=== PATIENT | male | born 1940 | race Caucasian/White ===

== ENCOUNTER 2016-08-12 11:45 | Day surgery (SDC) | payer MEDICARE ==
--- NOTE | 2016-08-08 14:19 | HP ---
Chief Complaint - Chief Complaint Date of Service: 08/08/16 Chief Complaint: need my colonoscopy History of Present Illness: 76 year old male who has had previous colonoscopy and polypectomy and his doctor told him to repeat in 5 years. No blood in stools, no abdominal pain or complaints. No weight loss. No family history of colon cancer. Hx of GERD and on meds but asymptomatic. - Patient's Past Medical History Patient History - Medical: Anxiety, Diabetes Type 2, GERD Patient History - Cardiac/Respiratory: Hypertension Patient History - Cancer: No Hx of Cancer Patient History - Surgical Procedures: Colonoscopy, EGD, ENT, Orthopedic - fractured leg----blood clot afterwards - Family History Family History:: no untoward family reactions to anesthesia, no familial bleeding tendencies, no family history of clotting disorders - Family History Mother Family History - Medical: - stroke age 73 Father Family History - Medical: - brain tumor - Social History Living Situations: spouse Abuse History: No History of abuse Psych History: No pertinent hx Does anyone smoke in the home?: No Smoking Status: Former smoker - 17 years ago Alcohol Use: none Drug Use: none - Immunizations Immunizations Up to Date: Yes Hx Pneumococcal Vaccination: More Information Required to Determine History of Influenza Vaccine: Yes Review Of Systems (GEN) - Review of Systems Generalized/Overall Review: Absent: Weakness, Chills, Fever, Fatigue, Weight loss, Weight gain Respiratory: Absent: Cough, Shortness of Breath, Wheezing Cardiac: Absent: Chest Pain, Edema, Palpitations Abdominal: Absent: Nausea, Vomiting, Abdominal Pain, Constipation, Diarrhea, Bright blood from rectum Genitourinary: Absent: Burning, Itching, Nocturia Musculoskeletal: Present: Back Pain. Absent: Joint Pain, Muscle Pain Neurological: Present: Anxiety. Absent: Headache, Depressed Skin: Absent: Dryness Allergies/Adverse Reactions: Allergies Allergy/AdvReac Type Severity Reaction Status Date / Time No Known Allergies Allergy Verified 08/08/16 14:19 Home Medications: HOME MEDICATIONS Aspirin [Aspir-Low] 81 mg PO DAILY 08/08/16 [Last Taken Unknown] Citalopram Hydrobromide [Celexa] 20 mg PO DAILY 08/08/16 [Last Taken Unknown] Cyclobenzaprine HCl [Flexeril] 10 mg PO TID PRN 08/08/16 [Last Taken Unknown] Famotidine [Pepcid AC] 20 mg PO DAILY 08/08/16 [Last Taken Unknown] Fenofibrate [Lofibra] 160 mg PO DAILY 08/08/16 [Last Taken Unknown] Glimepiride [Amaryl] 1 mg PO DAILY 08/08/16 [Last Taken Unknown] Lisinopril [Zestril] 40 mg PO DAILY 08/08/16 [Last Taken Unknown] Metaxalone [Skelaxin] 800 mg PO TID PRN 08/08/16 [Last Taken Unknown] Sucralfate [Carafate] 1 gm PO BID 08/08/16 [Last Taken Unknown] clonazePAM [Klonopin] 0.5 mg PO BID 08/08/16 [Last Taken Unknown] Exam - Exam Vital Signs: P 70 BP 130/75 RR 15 Ht 180cm Wt 116 kg T 36.8 Constitutional: Present: Alert, Oriented x3, Cooperative, Well nourished, No distress, Obese ENT Exam: Present: normal ENT inspection Eye Exam: bilateral eye: normal inspection Neck: Present: non-tender, full range of motion Respiratory: Present: lungs clear, normal breath sounds, no respiratory distress Cardiovascular/Chest: Present: normal peripheral pulses, regular rate, rhythm, no edema, no gallop, no JVD, no murmur Abdomen: Present: Normal bowel sounds, soft, nontender, no hepatospenomegaly, obese /Rectal: Present: Exam deferred Extremity: Present: normal range of motion, non-tender, normal inspection, no pedal edema Skin Exam: Present: normal color, warm/dry, no cyanosis Neurologic: Present: no motor/sensory deficits, alert, normal mood/affect Appearance: Present: appropriate appearance, appropriate insight, neat, no memory impairment Eye contact: Present: cooperative, good eye contact, normal speech Thoughts: Present: normal thought pattern, no apparent hallucination Assessment/Plan - Narrative Narrative: Discussed the [facility] for a colonoscopy with possible biopsy or polypectomy. MAKI discussed and he will do his split prep on the day of colonoscopy because we cannot schedule until afternoon with the current OR schedule at [facility]. Discussed his anxiety and his hypoglycemic symptoms. He understands and agrees. - Assessment/Plan (1) Diabetes Problem: Chronic Qualifiers: Diabetes mellitus type: type 2 (2) Hypertension Problem: Chronic (3) Screening for colon cancer Problem: Acute (4) Colon polyps Problem: Suspected Qualifiers: Colon polyp type: unspecified Colon location: unspecified part of colon Qualified Code(s): K63.5 - Polyp of colon (5) Anxiety Problem: Chronic (6) GERD (gastroesophageal reflux disease) Problem: Chronic Qualifiers: Esophagitis presence: esophagitis presence not specified Qualified Code(s) : K21.9 - Gastro-esophageal reflux disease without esophagitis (7) Back spasm Problem: Acute
[~2016-08-12 11:45] MED LIST: RINGERS SOLUTION,LACTATED 1,000 ML IV PRN
--- OUTSIDE RECORDS SUMMARY | 2016-08-12 11:50 | XMS REPORT | Continuity of Care Document ---
:1940 Author Organization [facility] ([facility]) Address [address] [place] [address] Phone [phone] Care Team Providers Name Role Phone Jesusita Parry Primary Care Provider [phone] Source Comments This disclosure is being made pursuant to the Care Everywhere program, applicable federal and state laws, and may not contain all informaitonavailable regarding this patient.[facility] ([facility]) Active Allergies and Adverse Reactions Allergen Noted Date Severity Reactions Comments Morphine 03/07/2013 Agitation Current Medications Prescription Sig. Disp. Refills Start Date End Date Status citalopram 20 mg tablet Take 20 mg by Active mouth daily. aspirin 81 mg EC tablet Take 81 mg by Active mouth daily. hydrochlorothiazide 12.5 mg Take 12.5 mg by Active tablet mouth daily. sucralfate 1000 mg tablet Take 1,000 mg Active by mouth before meals and at bedtime. fenofibrate PO Take 145 mg by Active mouth daily. famotidine 20 mg tablet Take 20 mg by Active mouth 2 times daily. lisinopril 40 mg tablet Take 40 mg by Active mouth daily. clonazePAM 0.5 mg tablet Take 0.5 mg by Active mouth 2 times daily. Active Problems Problem Noted Date Diabetes mellitus type II 03/07/2013 Hypophosphatemia 03/07/2013 GERD (gastroesophageal reflux disease) 03/07/2013 Anxiety disorder 03/07/2013 Chronic kidney disease, stage III (moderate) 03/04/2013 Immunizations Name Dates Previously Given Next Due Influenza, unspecified 02/21/2013 Social History Tobacco Use Types Packs/Day Years Used Date Former Smoker Last Filed Vital Signs Vital Sign Reading Time Taken Blood Pressure 134/76 03/07/2013 11:47 AM CDT Pulse 68 03/07/2013 11:47 AM CDT Temperature 36.9 C (98.4 F) 03/07/2013 11:47 AM CDT Respiratory Rate - - Height 1.8 m (5' 10.87") 03/07/2013 11:47 AM CDT Weight 111.2 kg (245 lb 2.4 oz) 03/07/2013 11:47 AM CDT Body Mass Index 34.32 03/07/2013 11:47 AM CDT Oxygen Saturation - - Plan of Care Health Maintenance Due Date Last Done Comments Hepatitis B Vaccine (1 of 3 - Primary Series) 1940 Tdap Vaccine 1952 DIABETIC: Cholesterol 1959 Diabetic: Hdl 1959 Diabetic: Ldl 1959 DIABETIC: Microalbumin 1959 DIABETIC: Triglycerides 1959 Td Vaccine 1959 Colonoscopy 1991 Prostate Cancer Screening 1991 Zoster Vaccine 2001 Pneumococcal Vaccine (1 of 2 - PCV13) 2006 DIABETIC: Foot Exam 03/07/2013 DIABETIC: Retinal Eye Exam 03/07/2013 DIABETIC: Hemoglobin A1C 09/04/2013 03/07/2013 Influenza Vaccine: Seasonal (#1) 12/07/2015 02/21/2013 Results from Last 3 Months Not on file
[2016-08-12] MEDS ORDERED: RINGERS SOLUTION,LACTATED 1,000 ML IV ONE (12:28)
--- NOTE | 2016-08-12 13:13 | OR ---
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 [facility] ANESTHESIA : Og Foote [employer] HEL[employer] sedation INDICATIONS: This is a 76 year old male who presents for a screening colonoscopy. I have discussed the risks, benefits, indications, and contraindications for colonoscopy with the possibility of biopsy and/or polypectomy. He understands, agrees, and wishes to proceed. He has undergone a SUPREP and has tolerated it well. PROCEDURE: The patient was brought to the operating theater and placed into the left lateral decubitus position. The patient underwent sedation per anesthesia , and a digital rectal exam was performed. This was noted to have no external hemorrhoids, a small palpable internal hemorrhoid would be slight subcutaneous cutaneous thickness which was like a cord, perhaps a chronically thrombosed vessel. The Olympus video colonoscope was introduced and advanced into the rectum. The rectum was normal in appearance, other than a submucosal lipomatous type lesion. The scope was then advanced through the sigmoid, where extensive diverticular disease was noted. The scope was then advanced to the cecum using standard reduction techniques. The appendiceal orifice was noted. The ileocecal valve was noted. The prep appeared to be good with a Central prep score of 7 (3 on the ascending colon ,2 transverse and 2 for the descending). The scope was withdrawn slowly as the ascending, transverse, descending, and sigmoid colon were examined in a circumferential fashion. Other than diverticulosis, which was noted throughout the entire colon but much more extensive in the sigmoid area, no abnormalities were noted. The scope was brought back into the rectum where it was retroflexed in the lower rectum was examined. The air was decompressed, and the scope was then removed. Withdrawal time was 9 minutes. POSTOPERATIVE CONDITION: The patient was awakened and taken to the ambulatory surgery center in good condition. No complications were encountered. FINDINGS: Extensive diverticulosis, primarily sigmoid but some around the entire colon. Probable chronically thrombosed internal hemorrhoid. Specimens: None EBL: 0 The findings were discussed with the patient and his . I do not recommend a follow-up colonoscopy in 10 years for screening purposes given his age. Diverticulosis booklet was reviewed.
[2016-08-12] MEDS ORDERED: RINGERS SOLUTION,LACTATED 1,000 ML IV PRN (13:37)
[2016-08-12 14:41] VITALS: BP 157/78
== END 2016-08-12 11:46 | disposition home or self-care (01) ==
LOC: AMB 11:45
PROVIDERS: ATTEND Surgery
PROC: 0DJD8ZZ Inspection of Lower Intestinal Tract, Via Natural or Artificial Opening Endoscopic (ICD-10-PCS; principal; 2016-08-12 13:00)
DX: Z12.11 Encounter for screening for malignant neoplasm of colon (principal); K57.30 Diverticulosis of large intestine without perforation or abscess without bleeding; K64.8 Other hemorrhoids; I10 Essential (primary) hypertension; E11.9 Type 2 diabetes mellitus without complications; K21.9 Gastro-esophageal reflux disease without esophagitis; F41.9 Anxiety disorder, unspecified; Z86.010 Personal history of colon polyps; Z87.891 Personal history of nicotine dependence; Z68.35 Body mass index [BMI] 35.0-35.9, adult